=== PATIENT | female | born 1930 | race Asian ===

== ENCOUNTER 2019-06-26 00:58 | Inpatient (IN) | payer MEDICARE, OTHER ==
[~2019-06-26] VITALS: Ht 152.4 cm; Wt 36.8 kg
--- NOTE | 2019-06-26 01:20 | NUR ---
ED Nurse Note: Recieved pt BIBA from streets, unable to state complaint, pt is congolese speaking only, is awake and alert, waiting for interpretation services assistance, no congolese assist at this time, will be available at 2am, pt is resting quietly in bed, has on 3 coats and bag of food, no ID, pt is resting calmly, no distress noted, will continue to monitor while waiting for interpretation to communicate, MD also at bedside and aware and waiting.
--- NOTE | 2019-06-26 01:58 | Emergency Room Report ---
History of Present Illness General Chief Complaint: General Complaint Source: Patient, EMS Present Illness HPI Patient is a approximately 80-year-old female brought in by EMS after being found wandering [place] . Patient had unknown past medical history and history is markedly limited initially due to a Lithuanian speaking. She was noted to be in no apparent distress at the time. Allergies: Coded Allergies: NO KNOWN ALLERGIES (Verified Allergy, Unknown, 06/26/19) COVID-19 Screening Contact w/high risk pt: No Recent Travel to affected area: No Experienced COVID-19 symptoms?: No Patient History Now: No Reviewed Nursing Documentation: PMH: Agreed; PSxH: Agreed Nursing Documentation-PMH Past Medical History: Deferred Review of Systems All Other Systems: limited Physical Exam Vital Signs Date Time Temp Pulse Resp B/P (MAP) Pulse Ox O2 Delivery O2 Flow Rate FiO2 06/26/19 01:04 98.2 84 16 176/68 (104) 98 Room Air Sp02 EP Interpretation: reviewed, normal General Appearance: normal inspection, no apparent distress, alert Head: atraumatic ENT: normal ENT inspection, hearing grossly normal, normal voice Neck: normal inspection, full range of motion, supple, no bony tend Respiratory: normal inspection, lungs clear, normal breath sounds, no respiratory distress, no retraction, no wheezing Cardiovascular #1: regular rate, rhythm, no edema Gastrointestinal: normal inspection, normal bowel sounds, non tender, soft, no guarding, no hernia Genitourinary: no CVA tenderness Musculoskeletal: normal inspection, back normal, normal range of motion Neurologic: alert, shoe cementer III-XII nml as tested, responsive, speech normal, normal inspection Psychiatric: normal inspection, judgement/insight normal, mood/affect normal Medical Decision Making Diagnostic Impression: Primary Impression: Pancreatitis Additional Impression: Urinary tract infection ER Course Patient is a approximately 80-year-old female who presented for wandering and possible confusion.Differential diagnosis include was not limited to pneumonia, urinary tract infection, dementia, coronavirus infection among others. Because of complexity of patient's case laboratory tests and imaging studies were ordered.Patient laboratory testing showed elevated lipase. There was some slight evidence of urinary infection. Patient started on IV fluids as well as given Rocephin due to some urinary infection. CT imaging was ordered due to patient's mental status and patient was noted to have been slightly improved over time. Patient refused CT imaging as well as CT abdomen pelvis.Dr. Sravanthi Trevizo was contacted for inpatient management due to panel Labs Test 06/26/19 02:42 06/26/19 03:30 White Blood Count 9.5 K/UL (4.8-10.8) Red Blood Count 3.76 M/UL (4.20-5.40) Hemoglobin 12.5 G/DL (12.0-16.0) Hematocrit 34.7 % (37.0-47.0) Mean Corpuscular Volume 92 FL (80-99) Mean Corpuscular Hemoglobin 33.3 PG (27.0-31.0) Mean Corpuscular Hemoglobin Concent 36.0 G/DL (32.0-36.0) Red Cell Distribution Width 10.1 % (11.6-14.8) Platelet Count 176 K/UL (150-450) Mean Platelet Volume 5.9 FL (6.5-10.1) Neutrophils (%) (Auto) % (45.0-75.0) Lymphocytes (%) (Auto) % (20.0-45.0) Monocytes (%) (Auto) % (1.0-10.0) Eosinophils (%) (Auto) % (0.0-3.0) Basophils (%) (Auto) % (0.0-2.0) Sodium Level 146 MMOL/L (136-145) Potassium Level 3.8 MMOL/L (3.5-5.1) Chloride Level 110 MMOL/L (98-107) Carbon Dioxide Level 23 MMOL/L (21-32) Anion Gap 13 mmol/L (5-15) Blood Urea Nitrogen 28 mg/dL (7-18) Creatinine 1.2 MG/DL (0.55-1.30) Estimat Glomerular Filtration Rate 43.3 mL/min (>60) Glucose Level 105 MG/DL (74-106) Calcium Level 9.0 MG/DL (8.5-10.1) Total Bilirubin 0.9 MG/DL (0.2-1.0) Aspartate Amino Transf (AST/SGOT) 24 U/L (15-37) Alanine Aminotransferase (ALT/SGPT) 26 U/L (12-78) Alkaline Phosphatase 73 U/L (46-116) Troponin I 0.001 ng/mL (0.000-0.056) Total Protein 7.3 G/DL (6.4-8.2) Albumin 3.8 G/DL (3.4-5.0) Globulin 3.5 g/dL Albumin/Globulin Ratio 1.1 (1.0-2.7) Triglycerides Level 34 MG/DL (30-150) Amylase Level 125 U/L (25-115) Lipase 769 U/L (73-393) Thyroid Stimulating Hormone (TSH) 0.459 uiU/mL (0.358-3.740) Urine Color [place] Urine Appearance Slightly cloudy Urine pH 5 (4.5-8.0) Urine Specific [place] 1.025 (1.005-1.035) Urine Protein 2+ (NEGATIVE) Urine Glucose (UA) Negative (NEGATIVE) Urine Ketones 3+ (NEGATIVE) Urine Blood 2+ (NEGATIVE) Urine Nitrite Negative (NEGATIVE) Urine Bilirubin 1+ (NEGATIVE) Urine Ictotest Positive (NEGATIVE) Urine Urobilinogen 4 MG/DL (0.0-1.0) Urine Leukocyte Esterase 3+ (NEGATIVE) Urine RBC 2-4 /HPF (0 - 2) Urine WBC 10-15 /HPF (0 - 2) Urine Squamous Epithelial Cells Few /LPF (NONE/OCC) Urine Calcium Oxalate Crystals Moderate /LPF (NONE) Urine Bacteria Moderate /HPF (NONE) Urine Mucus Moderate /LPF (NONE/OCC) Last Vital Signs Date Time Temp Pulse Resp B/P (MAP) Pulse Ox O2 Delivery O2 Flow Rate FiO2 06/26/19 01:04 98.2 84 16 176/68 (104) 98 Room Air Status: improved Disposition: ADMITTED INPATIENT Condition: Stable Scripts Unable to Obtain Active Prescriptions or Reported Meds Referrals: NOT CHOSEN IPA/,REFERRING (PCP) Jefry Espinoza MD Jun 26, 2019 01:58
--- NOTE | 2019-06-26 02:00 | NUR ---
ED Nurse Note: Interpretation seervices not available at this time, states will be at 2am but when attempted still no cold press operator available, MD aware, will give more time and try again, pt continues to rest quietly in bed, drinking water, warm blankets provided.
--- NOTE | 2019-06-26 02:25 | NUR ---
ED Nurse Note: Interpretation services still not available for ukrainian assistance, attempted to care for pt, pt is cooperative and answers in latvian, pt appears to understand most commands, pt also ambulated to bathroom, uses cane, tolerated well, asked for urine sample and pt gave, did understand and allowed blood draw but refused EKG, is aware, will continue to closely monitr and continue to attempt to contact Bruneian interpretator.
[2019-06-26] MEDS ORDERED: NS 250 ML IVPB ONE (02:30)
[2019-06-26 02:54] LABS: HEMATOCRIT 34.7 % (37.0-47.0); HEMOGLOBIN 12.5 G/DL (12.0-16.0); MEAN CORPUSCULAR VOLUME 92 FL (80-99); PLATELET COUNT 176 K/UL (150-450); RED BLOOD COUNT 3.76 M/UL (4.20-5.40); RED CELL DISTRIBUTION WIDTH 10.1 % (11.6-14.8); WHITE BLOOD COUNT 9.5 K/UL (4.8-10.8)
[2019-06-26 03:03] LABS: ANION GAP 13 mmol/L (5-15); BLOOD UREA NITROGEN 28 mg/dL (7-18); CARBON DIOXIDE 23 MMOL/L (21-32); CHLORIDE 110 MMOL/L (98-107); CREATININE 1.2 MG/DL (0.55-1.30); POTASSIUM 3.8 MMOL/L (3.5-5.1); SODIUM 146 MMOL/L (136-145)
[2019-06-26 03:25] LABS: ALANINE AMINOTRANSFERASE 26 U/L (12-78); ALBUMIN 3.8 G/DL (3.4-5.0); ALBUMIN/GLOBULIN RATIO 1.1 (1.0-2.7); ALKALINE PHOSPHATASE 73 U/L (46-116); ASPARTATE AMINO TRANSFERASE 24 U/L (15-37); BILIRUBIN,TOTAL 0.9 MG/DL (0.2-1.0)
[2019-06-26 03:36] LABS: BILIRUBIN, URINE 1+ (NEGATIVE); GLUCOSE, URINE (UA) NEGATIVE (NEGATIVE); KETONES,URINE 3+ (NEGATIVE); LEUKOCYTE ESTERASE ,URINE 3+ (NEGATIVE); NITRITE,URINE NEGATIVE (NEGATIVE); PH,URINE 5 (4.5-8.0); PROTEIN,URINE 2+ (NEGATIVE); UROBILINOGEN,URINE 4 MG/DL (0.0-1.0)
[2019-06-26 03:57] LABS: APPEARANCE,URINE SLIGHTLY CLOUDY; COLOR,URINE AMBER
[2019-06-26] MEDS ORDERED: cefTRIAXone 1 GM in NS 55 ML IVPB ONE (04:15)
[2019-06-26] MEDS ORDERED: Omnipaque-300 100ml vial INJ PRN (04:30)
--- NOTE | 2019-06-26 04:45 | NUR ---
ED Nurse Note: Returned from break, informed pt did recieve assistance from interpretator but pt appears to be confused, pt did give name but MD unsure if it is correct, will continue to use Kierrajuan david Mosquera, pt continues to rest quietly, will prepare for hospital admission as best as possible due to non-communication.
[2019-06-26] MEDS ORDERED: LR 1000ml 1,000 ML IV SCH (05:45)
[2019-06-26 06:00] VITALS: BP 134/82
--- NOTE | 2019-06-26 06:09 | NUR ---
ED Nurse Note: REPORT GIVEN TO JONNIE RAMÍREZ. PATIENT TO BE ADMITTED TO [facility] UNDER THE CARE OF JAYJAY TATE
--- NOTE | 2019-06-26 07:07 | NUR ---
NURSE NOTES: Received patient at 0620. Patient is an 80 yo F, Unidentified and occitan speaking only. Patient is unable to provide her SSN, or her birthdate. Attempted to ask patient her name, she said her name was "Nayeli Grande" She is able to walk with a cane. Unable to get PMH due to communication. Patient is in sinus rhythm, per ED report. Patient's admitting vital signs are 95% on RA. 151/67. 76 HR. 98.0 T. Patient does not exhibit any distress. Patient belongings are signed off and at bedside. Will endorse admission to AM shift. Otherwise, patient is in stable condition.
--- NOTE | 2019-06-26 07:58 | NUR ---
HAND-OFF: Report given to Fox RAMÍREZ
[2019-06-26 08:00] VITALS: BP 134/67
--- NOTE | 2019-06-26 08:00 | NUR ---
NURSE NOTES: Patient lying in bed sleeping. No signs ans symptoms of pain or distress at this time. IV dressing intact and dry. Bed lowest position. Call light within reach. Will continue to monitor.
[2019-06-26 08:52] LABS: AMYLASE 125 U/L (25-115); TRIGLYCERIDES 34 MG/DL (30-150)
[2019-06-26] MEDS ORDERED: HydrALAZINE 10mg Tab ORAL PRN (11:00)
--- NOTE | 2019-06-26 11:27 | NUR ---
ST NOTES: Referral for swallow evaluation and Speech evaluation from Dr Trevizo. Swallow Evaluation Summary: This approximately 80 y.o. Puerto Rican-speaking female was admitted on 06/25 today as a Kierra Mosquera (found wandering near [place]). Dysphagia and aspiration (and pna) risk factors: Acute Issues: AMS (seems confused and awaiting CT head), UTI, dehydration, pancreatitis (awaiting abdominal ultrasound). Lungs are clear per MD. On Room air with resp rate at 16 BPM and SP02 96-96-98 History unknown ? homeless. No POLST/Advance Directive regarding tube feeding preferences. ? prior diet/liquids. NPO now until some procedures. Per RNFox, the patient appeared to tolerate thin liquids with self-feeding using straw w/o overt aspiration. Will check brain scan to see if she has a silent aspiration risk. Alert but tends to talk with her eyes closed. Initially refused po trials. Able to speak to air route traffic controller over the telephone. Speech seemed less precise and reduced in loudness but intelligible with some phrases. Has upper/lower dentures (removed). Good resp rate and SP02 on room air. Initial Impressions: s/s of at least a Mild-Moderate oropharyngeal dysphagia with significantly increased overall transit times. Poor following oral commands and cough request. Tongue/lips adequate movements for some intelligible speech. Voice clear but reduced in loudness. Given thin liquids via straw, able to drink a few sips via straw w/o oral spillage/residue/overt aspiration (limited amount since will have ultrasound of abdomen soon) Given jello, chewed unnecessarily for 10 seconds, swallowed with fair hyolaryngeal excursion, no oral spillage/residue/overt aspiration Will hold on masticated solids since will have a CT head and ultrasound of abdomen to r/o pancreatitis soon. Has possible risk of SILENT aspiration (pending CT head and is confused now ? temporary and acute) ? intake since she tended to refuse po initially. ? impulsive po intake due to cognitive deficits, may increase aspiration risk. Recommendations Conservatively, complete modified barium swallow study as IP or OP if dc to further assess swallow, determine silent asp risk/etiology, and attempt trial tx techniques If po given for quality of life, consider moist pureed and nectar thick liquids until MBSS or po trials with 3 oz Ladi swallow protocol (after abdominal ultrasound). Strict aspiration precautions and assist/one-to-one feeding. Crush crushable meds and add to applesauce if receptive. Send high amparo supplements and diet type per RD (no report to date) Skilled dysphagia management and tx and Cog-com eval/tx tomorrow Educated/trained RN Fox and AD OPERATIONS COORDINATOR Fabiola in posted aspiration precautions and communication tips.
--- NOTE | 2019-06-26 11:32 | NUR ---
[employer] NOTE Pt is monolingual Russian. SW spoke w/ pt w/ educational sign language interpreter Viky#[id number]. Pt reports her name is Nayeli Grande, LILLI [birth year] unknown year. She reports she is 89 or 89 years old. Pt was unable to recall whether she is or her current residence. Pt was unable to recall any names/contact information. Pt brought a few clothes and the food bag with her. Pt reports she does not have any children. SW spoke w/ Detective Franks from [facility] [employer] [phone] and left pt's description for possible missing person. SW left a vm to [employer] at [facility] division [phone] for call back. Addendum: 06/26/19 at 1137 by CHERI NIETO SW spoke w/ Hardy from [facility] office [phone] and confirmed pt w/ name Harjinder Tyler is not conserved. Addendum: 06/26/19 at 1336 by CHERI NIETO GERSON spoke w/ James from [facility] [phone] that he will not be able to check pt's linkage d/t HIPAA. Addendum: 06/26/19 at 1512 by CHERI NIETO Pt is bilingual Georgian and Russian. Pt reports she is residing w/ her friend in an old house. Pt reports having one son and two adult grandsons. PT admits she was missing for a few times. Pt is unable to recall the names and contact information. Pt reports having a house [place]. Per [employer] front end web designer [phone], pt's address is [place]. GERSON spoke w/ the female gas load dispatcher #[id number] and provided the description.
[2019-06-26 12:00] VITALS: BP 131/56
--- NOTE | 2019-06-26 13:57 | History and Physical ---
History of Present Illness General Reason for Hospitalization: General Complaint Present Illness HPI Pt is approximately 80-year-old female British Virgin Islander speaking, unknown PMH, was brought in by EMS as she was found wandering. History obtained via warehouse driver phone, Anne, [phone]. Patient is poor historian, history limited due to patient participation, history obtained via chart review. Pt was found wandering [place] parking lot, was brought in by EMS, was in no apparent distress at the time. No identification was found on pt. In ED pt found to have UTI, possible pancreatits with elevated lipase. Pt refused CT head/abd at this time and unable to obtain further studies. Pt not participating in exam/ questions, and replies "I am sleepy". Pt admitted for further treatment and evaluation. PMH: unknown, pt not participating in questions FH: unknown SX: unknown SH: pressumed homeless allergies: NKDA Allergies: Coded Allergies: NO KNOWN ALLERGIES (Verified Allergy, Unknown, 06/26/19) COVID-19 Screening Contact w/high risk pt: No Recent Travel to affected area: No Experienced COVID-19 symptoms?: No Medication History Unable to Obtain Active Prescriptions or Reported Meds Patient History Healthcare decision maker Resuscitation status Full Code Advanced Directive on File Review of Systems ROS Narrative limited due to pt participation Physical Exam Physical Exam Narrative General: NAD, A&O x 1, self only, pt not participating in exam, thin HEENT: NCAT, EOMi, dry MM CV: RRR Pulm: CTAB, No wheezes, rhonchi, or rales, no accessory muscle usage or conversational dyspnea GI: Soft, nontender, nondistended, bowel sounds present Ext: No lower extremity edema bilaterally Skin: no rashes lesions or ulcers Msk: Joints symmetrical in upper extremity and lower extremity bilaterally, no joint swelling. Neuro: CN 2-12 grossly intact bilaterally, no focal signs. Last 24 Hour Vital Signs Date Time Temp Pulse Resp B/P (MAP) Pulse Ox O2 Delivery O2 Flow Rate FiO2 06/26/19 12:00 98.5 81 18 131/56 (81) 96 06/26/19 09:00 Room Air 06/26/19 08:19 Room Air 06/26/19 08:00 98.8 68 18 134/67 (89) 96 06/26/19 06:13 98.2 78 16 134/82 97 Room Air 06/26/19 06:00 98.2 78 16 134/82 97 Room Air 06/26/19 02:25 84 16 Room Air 06/26/19 01:04 98.2 84 16 176/68 (104) 98 Room Air Laboratory Tests Test 06/26/19 02:42 06/26/19 03:30 White Blood Count 9.5 K/UL (4.8-10.8) Red Blood Count 3.76 M/UL (4.20-5.40) L Hemoglobin 12.5 G/DL (12.0-16.0) Hematocrit 34.7 % (37.0-47.0) L Mean Corpuscular Volume 92 FL (80-99) Mean Corpuscular Hemoglobin 33.3 PG (27.0-31.0) H Mean Corpuscular Hemoglobin Concent 36.0 G/DL (32.0-36.0) Red Cell Distribution Width 10.1 % (11.6-14.8) L Platelet Count 176 K/UL (150-450) Mean Platelet Volume 5.9 FL (6.5-10.1) L Neutrophils (%) (Auto) % (45.0-75.0) Lymphocytes (%) (Auto) % (20.0-45.0) Monocytes (%) (Auto) % (1.0-10.0) Eosinophils (%) (Auto) % (0.0-3.0) Basophils (%) (Auto) % (0.0-2.0) Sodium Level 146 MMOL/L (136-145) H Potassium Level 3.8 MMOL/L (3.5-5.1) Chloride Level 110 MMOL/L (98-107) H Carbon Dioxide Level 23 MMOL/L (21-32) Anion Gap 13 mmol/L (5-15) Blood Urea Nitrogen 28 mg/dL (7-18) H Creatinine 1.2 MG/DL (0.55-1.30) Estimat Glomerular Filtration Rate 43.3 mL/min (>60) Glucose Level 105 MG/DL (74-106) Calcium Level 9.0 MG/DL (8.5-10.1) Total Bilirubin 0.9 MG/DL (0.2-1.0) Aspartate Amino Transf (AST/SGOT) 24 U/L (15-37) Alanine Aminotransferase (ALT/SGPT) 26 U/L (12-78) Alkaline Phosphatase 73 U/L (46-116) Troponin I 0.001 ng/mL (0.000-0.056) Total Protein 7.3 G/DL (6.4-8.2) Albumin 3.8 G/DL (3.4-5.0) Globulin 3.5 g/dL Albumin/Globulin Ratio 1.1 (1.0-2.7) Triglycerides Level 34 MG/DL (30-150) Amylase Level 125 U/L (25-115) H Lipase 769 U/L (73-393) H Thyroid Stimulating Hormone (TSH) 0.459 uiU/mL (0.358-3.740) Urine Color [place] Urine Appearance Slightly cloudy Urine pH 5 (4.5-8.0) Urine Specific [place] 1.025 (1.005-1.035) Urine Protein 2+ (NEGATIVE) H Urine Glucose (UA) Negative (NEGATIVE) Urine Ketones 3+ (NEGATIVE) H Urine Blood 2+ (NEGATIVE) H Urine Nitrite Negative (NEGATIVE) Urine Bilirubin 1+ (NEGATIVE) H Urine Ictotest Positive (NEGATIVE) Urine Urobilinogen 4 MG/DL (0.0-1.0) H Urine Leukocyte Esterase 3+ (NEGATIVE) H Urine RBC 2-4 /HPF (0 - 2) H Urine WBC 10-15 /HPF (0 - 2) H Urine Squamous Epithelial Cells Few /LPF (NONE/OCC) Urine Calcium Oxalate Crystals Moderate /LPF (NONE) Urine Bacteria Moderate /HPF (NONE) H Urine Mucus Moderate /LPF (NONE/OCC) H Height (Feet): 5 Height (Inches): 0.00 Weight (Pounds): 100 Medications Current Medications Medications (Trade) Dose Ordered Sig/Lorrie Route PRN Reason Start Time Stop Time Status Last Admin Dose Admin Acetaminophen (Tylenol) 650 mg Q4H PRN ORAL Mild Pain (Pain Scale 1-3) 06/26/19 11:00 07/26/19 10:59 Acetaminophen (Tylenol) 650 mg Q4H PRN ORAL Temp >100.5 06/26/19 11:00 07/26/19 10:59 Ceftriaxone Sodium 1 gm/ Sodium Chloride 55 ml @ 110 mls/hr DAILY IVPB 06/27/19 05:00 5/6/20 04:59 Dextrose (Dextrose 50%) 25 ml Q30M PRN IV Hypoglycemia 06/26/19 11:00 09/24/19 10:59 Dextrose (Dextrose 50%) 50 ml Q30M PRN IV Hypoglycemia 06/26/19 11:00 09/24/19 10:59 Enoxaparin Sodium (Lovenox) 30 mg Q24H SUBQ 06/26/19 21:00 09/24/19 20:59 Hydralazine HCl (Apresoline) 10 mg Q6H PRN ORAL For High Blood Pressure 06/26/19 11:00 09/24/19 10:59 Iohexol (OMNIPAQUE-300 100ml) 100 ml NOW PRN INJ Radiology Procedure 06/26/19 04:30 06/28/19 04:16 Lactated Ringer's 1,000 ml @ 75 mls/hr [id number] IV 06/27/19 11:00 07/26/19 10:59 Ondansetron HCl (Zofran) 4 mg Q6H PRN IVP Nausea & Vomiting 06/26/19 11:00 07/26/19 10:59 Assessment/Plan Assessment/Plan: Pt is approximately 80-year-old female [place] Islander speaking, unknown PMH, was brought in by EMS as she was found wandering. In ED pt found to have UTI, possible pancreatis with elevated lipase. Pt refused CT head/abd at this time and unable to obtain further studies. Pt not participating in exam/questions, and replies "I am sleepy". Pt admitted for further treatment and evaulation. #UTI #?Acute Toxic Metabolic encephalopathy versus underlying dementia -admit to med surg -afebrile, no leukocytosis -?underlying h/o dementia vs acute toxic metabolic encephalopathy -obtain CT head -Obtain CT abd -cont. IVF -UCx pending -BCxs pending -Psych consulted, Dr. Garcias, recs appreciated -CM/SS for dispo planning -abx CTX for now #Elevated Lipase -pt with no abd pain -CT abd pending -IVF -ctm, if worsens will consider GI DVT PPx: lovenox Time spent on encounter: 76 mins, >50% on counseling, coordination of care, d/w RN, BETH tena. Time of note doesn't reflect time of encounter. Teetee Ballard M.D. Jun 26, 2019 13:57
--- NOTE | 2019-06-26 14:23 | NUR ---
CASE MANAGEMENT: INITIAL REVIEW APPROXIMATELY 80YR OLD FEMALE BIBA FROM STREET CC: GENERAL COMPLAINT SI: PANCREATITIS . DEHYDRATION . UTI 98.2 84 16 176/68 98% ON RA NA+ 146 BUN 28 LIPASE 769 DOREEN 125 IS:IV ROCEPHIN X1 IVF NS BOLUS X1 IV PEPCID X1 \: 3E MED SURG UNIT DCP: HOMELESS PLAN: CT HEAD OBTAIN FAMILY SPEECH EVAL PT EVAL START ON IV ABX IV HYDRATE
--- NOTE | 2019-06-26 14:32 | NUR ---
NURSE NOTES: Patient pulled out IV line and tried to elope. Brought patient back to room. Spoke to regarding patient and will contact [facility] and GI .
[2019-06-26 16:00] VITALS: BP 132/73
--- NOTE | 2019-06-26 16:27 | NUR ---
PT Note PT eval completed. Patient is independent in all mobility and gait with an SPC. No further PT recommended at this time. Addendum: 06/26/19 at 1628 by SILVERIO CHE PT Amended: Links added.
--- NOTE | 2019-06-26 17:13 | NUR ---
[employer] NOTE SW met w/ officer Hayde from [facility] and attempted to match the description. Officer Munir filed APS report #[id number]. Officers confirmed that pt is not a missing person in [place].
--- NOTE | 2019-06-26 18:27 | NUR ---
NURSE NOTES: Spoke to Possible family member Emilio Fuentes (Grandson). Emilio saw [employer] web site and called. Phone #: / Address: [address] [place], [place] [id number]. Emilio stated that patient's name is SARAI WANG and : 1930. Emilio will come to hospital tomorrow and provide more information and insurance information.
--- NOTE | 2019-06-26 19:30 | NUR ---
HAND-OFF: Report given to Jeremiah RN. Patient in stable condition.
--- NOTE | 2019-06-26 19:35 | NUR ---
NURSE NOTES: Receive a report from DESIREE Braxton. Round is done. pt is lying in bed without acute distress. Call light within reach. On bed alarm. Up both side rails up x 2. Bed locked and lowest. No IV access at this time and MD aware. Will continue to monitor.
[2019-06-26 20:00] VITALS: BP 130/90
--- NOTE | 2019-06-26 20:00 | NUR ---
NURSE NOTES: Pt is awake but confuse, uzbek-speaking. Provide orientation. Denies pain. Looks weak but able to walk to bathroom by herself. Remind of using call light for help and provide fall precautions. Will continue to monitor.
[2019-06-26] MEDS ORDERED: Enoxaparin 30mg Inj SUBQ SCH (21:00)
--- NOTE | 2019-06-26 21:30 | NUR ---
NURSE NOTES: Refuses to get medication bc she is healthy. Given orientation and explain for medication benefits and risks but still refuses it. Will continue to monitor.
--- NOTE | 2019-06-27 | NUR ---
NURSE NOTES: Pt is asleep without acute distress. On bed alarm. Will continue to monitor.
--- NOTE | 2019-06-27 00:04 | Initial Psychiatric Evaluation ---
Psychiatry Consultation Psychiatry Consultation Chief Complaint: General Complaint Allergies: Coded Allergies: NO KNOWN ALLERGIES (Verified Allergy, Unknown, 06/26/19) Medication History Unable to Obtain Active Prescriptions or Reported Meds Objective Data Height (Feet): 5 Height (Inches): 0.00 Weight (Pounds): 100 Nagi Weaver MD Jun 27, 2019 00:04
--- NOTE | 2019-06-27 00:30 | NUR ---
NURSE NOTES: CN receives an order from Dr. Weaver that may apply soft wrist restraints if pt gets agitated and wander around. Order noted and carried out.
[2019-06-27] MEDS ORDERED: LORazepam 0.5mg tab ORAL PRN (00:45)
[2019-06-27] MEDS ORDERED: LORazepam 1mg tab ORAL PRN (01:00)
[2019-06-27 04:00] VITALS: BP 144/71
[2019-06-27] MEDS ORDERED: cefTRIAXone 1 GM in NS 55 ML IVPB SCH ×2 (05:00→09:00)
--- NOTE | 2019-06-27 05:00 | NUR ---
NURSE NOTES: Pt is awake and denies pain. Explain for IV hydration. Pt says, "I am healthy. I don't need medication." Reassuring pt for hydration. IV establishes on right FA. Re-educate to use call light for help. Pt verbalizes understanding. Urine test for Drug screen got collected. Will continue to monitor.
[2019-06-27 05:41] LABS: BASOPHILS % (AUTO) 1.5 % (0.0-2.0); EOSINOPHILS % (AUTO) 5.9 % (0.0-3.0); HEMATOCRIT 33.1 % (37.0-47.0); HEMOGLOBIN 11.7 G/DL (12.0-16.0); LYMPHOCYTES % (AUTO) 26.2 % (20.0-45.0); MEAN CORPUSCULAR VOLUME 93 FL (80-99); MONOCYTES % (AUTO) 11.9 % (1.0-10.0); NEUTROPHILS % (AUTO) 54.5 % (45.0-75.0); PLATELET COUNT 148 K/UL (150-450); RED BLOOD COUNT 3.56 M/UL (4.20-5.40); RED CELL DISTRIBUTION WIDTH 10.2 % (11.6-14.8); WHITE BLOOD COUNT 4.9 K/UL (4.8-10.8)
[2019-06-27 06:00] LABS: ALANINE AMINOTRANSFERASE 21 U/L (12-78); ALBUMIN 3.2 G/DL (3.4-5.0); ALBUMIN/GLOBULIN RATIO 0.9 (1.0-2.7); ALKALINE PHOSPHATASE 63 U/L (46-116); ANION GAP 9 mmol/L (5-15); ASPARTATE AMINO TRANSFERASE 22 U/L (15-37); BILIRUBIN,TOTAL 0.9 MG/DL (0.2-1.0); BLOOD UREA NITROGEN 24 mg/dL (7-18); CALCIUM 8.2 MG/DL (8.5-10.1); CARBON DIOXIDE 27 MMOL/L (21-32); CHLORIDE 109 MMOL/L (98-107); CREATININE 0.8 MG/DL (0.55-1.30); POTASSIUM 3.4 MMOL/L (3.5-5.1); SODIUM 145 MMOL/L (136-145)
--- NOTE | 2019-06-27 07:30 | NUR ---
HAND-OFF: Report given to DESIREE Salazar.
--- NOTE | 2019-06-27 07:30 | NUR ---
NURSE NOTES: Patient is in bed asleep. Stable. Breathing is even and unlabored. No visible signs of distress noted. Patient is in bed in locked and lowest position with call light within reach. All safety measures provided. Will continue to monitor.
[2019-06-27 08:00] VITALS: BP 149/76
--- NOTE | 2019-06-27 08:51 | General Progress Note ---
Assessment/Plan Assessment/Plan: Pt is approximately 80-year-old female Russian/Georgian speaking, unknown PMH, was brought in by EMS as she was found wandering. In ED pt found to have UTI, possible pancreatis with elevated lipase. Pt refused CT head/abd at this time and unable to obtain further studies. Pt not participating in exam/questions, and replies "I am sleepy". Pt admitted for further treatment and evaulation. #UTI #?Acute Toxic Metabolic encephalopathy versus underlying dementia -cont. in-pt medical care -afebrile, no leukocytosis -?underlying h/o dementia vs acute toxic metabolic encephalopathy -CT head ordered in ER, not done, re-ordered -CT abd ordered in ER, not done, re-ordered and pending -cont. IVF -UCx w/GPC, pending final sensitivites -BCxs pending -Psych consulted, Dr. Garcias, recs appreciated -CM/SS for dispo planning -abx CTX for now #Elevated Lipase #Acute pancreatitis -pt with no abd pain -lipase improved -CT abd w/contrast pending -IVF -GI consulted, recs appreciated #Hypokalemia -replace, ctm, replace PRN #?homeless -CM/SS for dispo planning DVT PPx: lovenox Time spent on encounter: 36 mins, >50% on counseling, coordination of care, d/w RN, GI. Time of note doesn't reflect time of encounter. Subjective Allergies: Coded Allergies: NO KNOWN ALLERGIES (Verified Allergy, Unknown, 06/26/19) Subjective F/u on UTI, pancreatitis. Pt is occitan and albanian speaking. Per nurse, son called overnight to identify pt, stated would bring in documents to verify identification. Pt denies any pain at this time, states she is "good". Objective Last 24 Hour Vital Signs Date Time Temp Pulse Resp B/P (MAP) Pulse Ox O2 Delivery O2 Flow Rate FiO2 06/27/19 04:00 97.7 61 18 144/71 (95) 96 06/27/19 00:00 18 06/26/19 21:00 Room Air 06/26/19 20:00 98.6 74 18 130/90 (103) 97 06/26/19 16:00 98.0 84 18 132/73 (92) 96 06/26/19 12:00 98.5 81 18 131/56 (81) 96 06/26/19 09:00 Room Air Intake and Output 06/26/19 06/27/19 19:00 07:00 Intake Total 100 ml Balance 100 ml Intake Oral 100 ml # Voids 2 Laboratory Tests 06/27/19 04:45: White Blood Count 4.9, Red Blood Count 3.56L, Hemoglobin 11.7L, Hematocrit 33.1L , Mean Corpuscular Volume 93, Mean Corpuscular Hemoglobin 32.9H, Mean Corpuscular Hemoglobin Concent 35.5, Red Cell Distribution Width 10.2L, Platelet Count 148L, Mean Platelet Volume 6.5, Neutrophils (%) (Auto) 54.5, Lymphocytes (%) (Auto) 26.2, Monocytes (%) (Auto) 11.9H, Eosinophils (%) (Auto) 5.9H, Basophils (%) (Auto) 1.5, Sodium Level 145, Potassium Level 3.4L, Chloride Level 109H, Carbon Dioxide Level 27, Anion Gap 9, Blood Urea Nitrogen 24H, Creatinine 0.8, Estimat Glomerular Filtration Rate > 60, Glucose Level 90, Hemoglobin A1c 5.5, Calcium Level 8.2L, Magnesium Level 2.1, Total Bilirubin 0.9 , Aspartate Amino Transf (AST/SGOT) 22, Alanine Aminotransferase (ALT/SGPT) 21, Alkaline Phosphatase 63, Total Protein 6.7, Albumin 3.2L, Globulin 3.5, Albumin/ Globulin Ratio 0.9L 06/27/19 05:00: Urine Opiates Screen Negative, Urine Barbiturates Screen Negative, Phencyclidine (PCP) Screen Negative, Urine Amphetamines Screen Negative, Urine Benzodiazepines Screen Negative, Urine Cocaine Screen Negative, Urine Marijuana (THC) Screen Negative Height (Feet): 5 Height (Inches): 0.00 Weight (Pounds): 81 Objective General: NAD, A&O x 1, self only, pt not participating in exam, thin HEENT: NCAT, EOMi, dry MM CV: RRR Pulm: CTAB, No wheezes, rhonchi, or rales, no accessory muscle usage or conversational dyspnea GI: Soft, nontender, nondistended, bowel sounds present, no guarding/rebound Ext: No lower extremity edema bilaterally Skin: no rashes lesions or ulcers Neuro: CN 2-12 grossly intact bilaterally, no focal signs. Ballard,NguyenVy M.D. Jun 27, 2019 08:51
--- NOTE | 2019-06-27 09:43 | General Progress Note ---
Assessment/Plan Assessment/Plan: uti thrombocytopenia pancreatitis change CT with iv contrast fu amylase and lipase CA 19-9 abx for uti per primary team will fu Subjective ROS Limited/Unobtainable: No Allergies: Coded Allergies: NO KNOWN ALLERGIES (Verified Allergy, Unknown, 06/26/19) Objective Last 24 Hour Vital Signs Date Time Temp Pulse Resp B/P (MAP) Pulse Ox O2 Delivery O2 Flow Rate FiO2 06/27/19 08:00 97.8 68 18 149/76 (100) 96 06/27/19 04:00 97.7 61 18 144/71 (95) 96 06/27/19 00:00 18 06/26/19 21:00 Room Air 06/26/19 20:00 98.6 74 18 130/90 (103) 97 06/26/19 16:00 98.0 84 18 132/73 (92) 96 06/26/19 12:00 98.5 81 18 131/56 (81) 96 Intake and Output 06/26/19 06/27/19 19:00 07:00 Intake Total 100 ml Balance 100 ml Intake Oral 100 ml # Voids 2 Laboratory Tests 06/27/19 04:45: White Blood Count 4.9, Red Blood Count 3.56L, Hemoglobin 11.7L, Hematocrit 33.1L , Mean Corpuscular Volume 93, Mean Corpuscular Hemoglobin 32.9H, Mean Corpuscular Hemoglobin Concent 35.5, Red Cell Distribution Width 10.2L, Platelet Count 148L, Mean Platelet Volume 6.5, Neutrophils (%) (Auto) 54.5, Lymphocytes (%) (Auto) 26.2, Monocytes (%) (Auto) 11.9H, Eosinophils (%) (Auto) 5.9H, Basophils (%) (Auto) 1.5, Sodium Level 145, Potassium Level 3.4L, Chloride Level 109H, Carbon Dioxide Level 27, Anion Gap 9, Blood Urea Nitrogen 24H, Creatinine 0.8, Estimat Glomerular Filtration Rate > 60, Glucose Level 90, Hemoglobin A1c 5.5, Calcium Level 8.2L, Magnesium Level 2.1, Total Bilirubin 0.9 , Aspartate Amino Transf (AST/SGOT) 22, Alanine Aminotransferase (ALT/SGPT) 21, Alkaline Phosphatase 63, Total Protein 6.7, Albumin 3.2L, Globulin 3.5, Albumin/ Globulin Ratio 0.9L, Lipase [Pending] 4/29/20 05:00: Urine Opiates Screen Negative, Urine Barbiturates Screen Negative, Phencyclidine (PCP) Screen Negative, Urine Amphetamines Screen Negative, Urine Benzodiazepines Screen Negative, Urine Cocaine Screen Negative, Urine Marijuana (THC) Screen Negative Height (Feet): 5 Height (Inches): 0.00 Weight (Pounds): 81 General Appearance: alert EENT: normal ENT inspection Neck: supple Cardiovascular: normal rate Respiratory/Chest: decreased breath sounds Abdomen: normal bowel sounds, non tender, soft Extremities: non-tender Harjinder Kaiser MD Jun 27, 2019 09:43
--- NOTE | 2019-06-27 09:44 | NUR ---
NURSE NOTES: RN attempted to obtain consent x2 from grandson (Emilio Fuentes), no answer, no voicemail option available. Will try again.
[2019-06-27] MEDS ORDERED: Omnipaque-300 100ml vial INJ PRN (09:45)
[2019-06-27] MEDS ORDERED: LR 1000ml 1,000 ML IV SCH (11:00)
[2019-06-27 12:00] VITALS: BP 130/63
--- NOTE | 2019-06-27 14:14 | NUR ---
NURSE NOTES: Patient's daughter and grandson Emilio Fuentes came to hospital lobby. RN spoke to family regarding patient verification and made SW aware.
--- NOTE | 2019-06-27 14:30 | NUR ---
NURSE NOTES: Patient left hospital AMA. Patient's grandson and daughter refused care. Global Sales Executive Kia spoke to patient's family as well. Family is aware of risks and benefits and continues to refuse care. Dr. Kaiser made aware. Dr. Ballard paged, awaiting call back. All patient's belongings given to grandson Emilio Fuentes. Patient assisted into family car by RN without incident. Skin c/d/i. No IV access. Patient's family instructed to follow up with primary care physician, Emilio verbalized understanding.
[2019-06-27] MEDS ORDERED: LR 1000ml ONE (14:44)
--- NOTE | 2019-06-27 14:52 | NUR ---
BAG ADJUSTER NOTE SW met w/ daughter and grandson and verified pt's identity. The family signed AMA. Pt has hx of multiple wandering. SW recommended the senior bracelet. Pt's daughter Marie Santiago [phone]
--- NOTE | 2019-06-27 15:36 | NUR ---
PT SEEN AT BEDSIDE FOR COGNITIVE COMMUNICATIVE EVALUATION. (Pt also seen for dysphagia intervention, see care activity section) INITIAL IMPRESSIONS: (formal report to follow) Pt presenting with moderate cognitive communicative deficits, most significant deficits including: word retrieval, memory (immediate, delayed, mcc), reasoning, poor insights into deficits, and safety awareness. Pt is a pleasant elderly female, participated actively for the duration of the evaluation. Pt is able to communicate basic wants and needs, able to communicate in Greek w/o difficulty. Pt is orientated to self only, unable to name objects or pictures, presenting w/ poor safety awareness, unable to complete complex reasoning tasks or complex sequencing tasks. Pt benefits from situational orientation as frequently as possible due to Pt being a flight risk. ELECTRICAL AND ELECTRONIC ASSEMBLER plans to continue to see Pt for dysphagia intervention and treatment, in addition to seeing Pt (while in house) for cognitive-linguistic training targeting Pt's safety awareness, and use of compensatory strategies to improve Pt's overall safety, independence, and quality of life.
--- NOTE | 2019-06-28 01:29 | Progress Note ---
DATE: 06/27/2019 SUBJECTIVE: The patient is confused, disoriented, episodes of anxiety. No behavior issues noted. Compliant with medication. MENTAL STATUS EXAMINATION: Oriented to times, self, place, and situation. Mood is neutral. Affect is flat. Thought process is concrete. Thought content, no suicidal or homicidal ideation. ASSESSMENT: Stable. PLAN: Continue current medications. Nagi Weaver M.D. DR: Rylie JOB#: [id number] CC:
--- NOTE | 2019-06-30 09:06 | Discharge Summary ---
Discharge Summary Hospital Course Date of Admission Jun 26, 2019 at 04:54 Date of Discharge Jun 27, 2019 at 14:45 Admitting Diagnosis pancreatitis, dehydration, uti HPI Ashley Jones is a 89 year old female who was admitted on Jun 26, 2019 at 04:54 for Pancreatitis, Dehydration, Uti Hospital Course Late Entry. Pt is approximately 80-year-old female Cameroonian/Slovak speaking, unknown PMH, was brought in by EMS as she was found wandering. In ED pt found to have UTI, possible pancreatis with elevated lipase. Pt refused CT head/abd at this time and unable to obtain further studies. Pt not participating in exam/questions, and replies "I am sleepy". BCx NGTD, UCx with mixed stephanie, pt started on empiric abx but denies any suprapubic pain, dysuria, may be asymptomatic bacteruria. Psych consulted for eval however pt and pt's family arrived to hospital wanting to leave AMA. Nurse called me to inform me that patient decided to leave AGAINST MEDICAL ADVICE. Patient stated she would not wait for me to come auto travel counselor pt. nursing counseled patient on risks of leaving AGAINST MEDICAL ADVICE. Patient left the facility AMA prior to my exam. Pt was being worked up for UTI and possible metabolic encephalopathy imposed on underlying dementia and does not have a clear diagnosis. Nurse informed the pt that work up for definitive diagnosis is ordered and you may have a problem that could lead to demise/morbidity/mortality if it goes undiagnosed. Family expressed understanding and left facilty AMA. #UTI #?Acute Toxic Metabolic encephalopathy versus underlying dementia #Elevated Lipase #Acute pancreatitis #Hypokalemia #?homeless D/c planning <30 mins. Discharge Condition Upon Discharge: stable Discharge Vital Signs Last Vital Signs Date Time Temp Pulse Resp B/P (MAP) Pulse Ox O2 Delivery O2 Flow Rate FiO2 06/27/19 12:00 97.3 60 16 130/63 (85) 96 06/27/19 09:00 Room Air Discharge Disposition Patient was discharged to home Teetee Ballard M.D. June 30, 2019 09:06
== END 2019-06-27 14:45 | disposition left against medical advice (07) | DRG 689 ==
LOC: EDBD 00:58 → EMR 01:07 → 3E 04:54 → EDBD 04:54 → EDBEDREQ 06:11
DX: N39.0 Urinary tract infection, site not specified (principal); G93.41 Metabolic encephalopathy; K85.90 Acute pancreatitis without necrosis or infection, unspecified; F03.90 Unspecified dementia, unspecified severity, without behavioral disturbance, psychotic disturbance, mood disturbance, and anxiety; E87.6 Hypokalemia; D47.3 Essential (hemorrhagic) thrombocythemia; E86.0 Dehydration; Z59.0 Homelessness; D69.6 Thrombocytopenia, unspecified
CPT/HCPCS: 36415; 80053; 80307; 81001; 82150; 83036; 83690; 83735; 84443; 84478; 84484; 85025; 87040; 87086; 96365; 96375; 99285